=== PATIENT | female | born 1945 | race Caucasian/White ===

== ENCOUNTER 2019-03-23 10:09 | Emergency (ER) | payer MEDICARE, OTHER, MEDICAID ==
[~2019-03-23] VITALS: Ht 162.6 cm; Wt 52.2 kg
[~2019-03-23 10:09] MED LIST: ABILIFY 2 MG2 M1 PO; AMBIEN 5 MG TABL5 M1 PO; AMLODIPINE BESY10 MG PO; ATIVAN1 MG PO; HYDROCODONE-AP1 EAC6 PO; LINZESS145 MCG PO; OMEPRAZOLE20 MG PO; PERCOCET 5-3251 EACH PO; TRAMADOL 50 MG50 MG PO; VALIUM5 MG PO
[2019-03-23 10:45] LABS: HEMATOCRIT 38.7 % (37.0-47.0); HEMOGLOBIN 12.2 gm/dL (12.0-15.0); MCH 26.3 pg (26.0-34.0); MCHC 31.5 g/dL (28.0-37.0); MCV 83.7 fL (80.0-100.0); MPV 8.1 fl. (7.2-11.1); RBC 4.62 mil/uL (4.20-5.00); RDW-CV 18.4 % (10.5-14.5); WBC 6.5 thou/uL (4.0-11.0)
[2019-03-23 10:58] LABS: ANION GAP 11 mmol/L (7-16); BUN 10 mg/dL (7-18); CALCIUM 9.9 mg/dL (8.5-10.1); CHLORIDE 99 mmol/L (98-107); CO2 24 mmol/L (21-32); GLUCOSE 113 mg/dL (70-99); POTASSIUM 4.1 mmol/L (3.5-5.1); SODIUM 134 mmol/L (136-145)
[2019-03-23 11:02] LABS: TROPONIN-I LEVEL <0.06 ng/mL (<0.06)
[2019-03-23] MEDS ORDERED: NORCO 5-325 TA1 EAC1 PO (12:18)
[2019-03-23 12:33] VITALS: BP 144/86
--- NOTE | 2019-03-23 16:45 | EKG ---
[place] [address] ELECTROCARDIOGRAM REPORT Name: JEFFERY ELLER Kirt Room: [facility]#: [id number] Admission: 03/23/19 Attend Phys: Discharge: 03/23/19 Date of : 41 Report #: [id number] THIS REPORT FOR: //name// [facility] ED Test Date: 2019-03-23 Test Time: 10:19:12 Pat Name: JEFFERY ELLER Department: Room: Gender: F [employer]scape [employer]: [place] : 1945 Requested By: Tommie Robbins Order Number: [id number] MD: Matthew Magaña Measurements Intervals [place] Rate: 104 P: 63 MD: 122 QRS: -10 QRSD: 105 T: 62 QT: 352 QTc: 463 Interpretive Statements Sinus tachycardia Probable left atrial enlargement RSR' in V1 or V2, right VCD or RVH Baseline wander in lead(s) V1,V4 Compared to ECG 05/30/2008 14:22:16 RSR' in V1 or V2 now present Sinus rate has increased Electronically Signed On 03-23-2019 16:45:04 CDT by Matthew Magaña [email or web address] <ELECTRONICALLY SIGNED> By: Matthew Magaña MD, [facility] 03/23/19 [id number] Matthew Magaña MD, [facility] /EPI
== END 2019-03-23 12:34 | disposition home or self-care (01) ==
LOC: M.ERS 10:09
PROVIDERS: Emergency Medicine Emergency Medical Services
DX: S20.212A Contusion of left front wall of thorax, initial encounter (principal); W18.39XA Other fall on same level, initial encounter; Y93.89 Activity, other specified; Y92.89 Other specified places as the place of occurrence of the external cause; Y99.8 Other external cause status